=== PATIENT | female | born 1995 | race Caucasian/White ===

== ENCOUNTER 2017-02-18 17:39 | Emergency (ER) | payer BC ==
[~2017-02-18] VITALS: Ht 167.6 cm; Wt 53.0 kg
[~2017-02-18 17:39] MED LIST: BCPILLS PO
[2017-02-18 17:48] VITALS: Ht 167.6 cm; Wt 53.0 kg
[2017-02-18] MEDS ORDERED: SODIUM CHLORIDE 0.9% 1000ML 1,000 ML IV STA (18:02)
--- NOTE | 2017-02-18 18:09 | EMERGENCY ROOM VISIT NOTE ---
History Report prepared by Milagro: Damian Mojica Under the Supervision of: Dr. Ha Ingram M.D. First contact with patient: 17:55 Chief Complaint: GI ASSESSMENT Stated Complaint: BLOODY DIARRHEA Nursing Triage Summary: Four episodes of bloody diarrhea today History of Present Illness The patient is a 21 year old female who presents to the Emergency Room with complaints of episodes of bloody diarrhea occurring today. She notes having about 4 to 5 episodes of bloody diarrhea that began after running earlier. She is currently training for a marathon, and denies taking any supplements. She admits to feeling slightly lightheaded upon standing, and notes her abdomen feels crampy. The patient denies having back pain, and has not had any sick contact. She was in [place] last month but denies drinking from [place]. She has been eating fine, and admits to drinking alcohol yesterday. The patient reports she has been taking Zoloft 75 mg for about a year, and occasionally takes ibuprofen most recently yesterday. She notes she had streaks of blood in her stool once before but not associated with diarrhea. She denies recent sick contact. Source of History: patient Onset: earlier today Position: other (rectum) Symptom Intensity: 4-5 episodes Quality: other (hematochezia) Timing: other (episodes) Associated Symptoms: No back pain Note: Patient admits to some lightheadedness with standing. Review of Systems See HPI for pertinent positives & negatives. A total of 10 systems reviewed and were otherwise negative. Past Medical & Surgical Medical Problems: (1) Asthma (2) Pneumonia, Organism Nos (3) Syncope Surgical Problems: (1) No history of previous surgery Family History FH: cancer FH: hypertension FH: kidney disease Social History Smoking Status: Never Smoker Alcohol Use: none Marital Status: single Housing Status: lives with family Occupation Status: [employer] student Current/Historical Medications Scheduled Control Pills ( Control Pills), 1 TAB PO DAILY Omeprazole (Omeprazole), 1 TAB PO DIRECTED Sertraline (Zoloft), 75 MG PO DAILY Allergies Coded Allergies: No Known Allergies (Unverified , 02/18/17) Physical Exam Vital Signs Date Time Temp Pulse Resp B/P Pulse Ox O2 Delivery O2 Flow Rate FiO2 02/18/17 20:28 66 18 114/69 98 02/18/17 18:46 76 16 96/60 02/18/17 18:14 85 110/62 87 108/59 81 99/60 02/18/17 17:58 58 02/18/17 17:48 53 20 85/45 99 Room Air Physical Exam GENERAL: Patient is well appearing and in minimal distress. HEENT: No acute trauma, normocephalic atraumatic, mucous membranes moist, no nasal congestion, no scleral icterus. NECK: No stridor, no adenopathy, no meningismus, trachea is midline. LUNGS: No dyspnea. Clear to auscultation and equal bilaterally. No wheeze, no rhonchi. HEART: Regular rate and rhythm. No murmurs, rubs, gallops appreciated. ABDOMEN: Soft, nontender, bowel sounds positive, no masses appreciated, no peritonitis. BACK: No midline tenderness, no CVA tenderness EXTREMITIES: Normal motion all extremities, no cyanosis, no edema. NEUROLOGIC: Alert and oriented, no acute motor or sensory deficits, no focal weakness, cranial nerves grossly intact. SKIN: No rash, no jaundice, no diaphoresis. RECTAL: Brown bloody stool. Medical Decision & Procedures Laboratory Results 02/18/17 18:20 Red Blood Count 5.11, Mean Corpuscular Volume 88.6, Mean Corpuscular Hemoglobin 30.1, Mean Corpuscular Hemoglobin Concent 34.0, Mean Platelet Volume 9.9, Neutrophils (%) (Auto) 82.0, Lymphocytes (%) (Auto) 11.8, Monocytes (%) (Auto) 5.8, Eosinophils (%) (Auto) 0.0, Basophils (%) (Auto) 0.2, Neutrophils # (Auto) 11.09, Lymphocytes # (Auto) 1.60, Monocytes # (Auto) 0.79, Eosinophils # (Auto) 0.00, Basophils # (Auto) 0.03 02/18/17 18:20 Test 02/18/17 18:20 02/18/17 18:35 White Blood Count 13.54 K/uL (4.8-10.8) Red Blood Count 5.11 M/uL (4.2-5.4) Hemoglobin 15.4 g/dL (12.0-16.0) Hematocrit 45.3 % (37-47) Mean Corpuscular Volume 88.6 fL (80-100) Mean Corpuscular Hemoglobin 30.1 pg (25-34) Mean Corpuscular Hemoglobin Concent 34.0 g/dl (32-36) Platelet Count 274 K/uL (130-400) Mean Platelet Volume 9.9 fL (7.4-10.4) Neutrophils (%) (Auto) 82.0 % Lymphocytes (%) (Auto) 11.8 % Monocytes (%) (Auto) 5.8 % Eosinophils (%) (Auto) 0.0 % Basophils (%) (Auto) 0.2 % Neutrophils # (Auto) 11.09 K/uL (1.4-6.5) Lymphocytes # (Auto) 1.60 K/uL (1.2-3.4) Monocytes # (Auto) 0.79 K/uL (0.11-0.59) Eosinophils # (Auto) 0.00 K/uL (0-0.5) Basophils # (Auto) 0.03 K/uL (0-0.2) RDW Standard Deviation 42.2 fL (36.4-46.3) RDW Coefficient of Variation 13.0 % (11.5-14.5) Immature Granulocyte % (Auto) 0.2 % Immature Granulocyte # (Auto) 0.03 K/uL (0.00-0.02) Red Blood Cell Morphology Unremarkable Prothrombin Time 10.4 SECONDS (9.0-12.0) Prothromb Time International Ratio 1.0 (0.9-1.1) Anion Gap 12.0 mmol/L (3-11) Est Creatinine Clear Calc Drug Dose 75.3 ml/min Estimated GFR () 94.9 Estimated GFR (Non- 81.9 BUN/Creatinine Ratio 17.4 (10-20) Calcium Level 9.4 mg/dl (8.5-10.1) Total Creatine Kinase 113 U/L (26-192) C-Reactive Protein 0.35 mg/dl (0-0.29) Date/Time Source Procedure Growth Status 02/18/17 18:05 Stool C.difficile Toxin B Gene (PCR) - Final No C. difficile toxin B gene detected Complete Laboratory results as reviewed by me. Medications Administered Medications (Trade) Dose Ordered Sig/Zuri Route Start Time Stop Time Status Last Admin Dose Admin Sodium Chloride (Nss 1000ml) 1,000 ml @ 999 mls/hr Q1H1M STAT IV 02/18/17 18:02 02/18/17 19:02 DC 02/18/17 18:25 999 MLS/HR ED Course 175: The patient was evaluated in room B12B. A complete history and physical exam was performed. 1801: Ordered NSS 1,000 ml @ 999 mls/hr IV. 2002: Discussed the patient's case with Dr. Sanabria who recommends using a proton pump inhibitor twice daily for 1 week, and following up in the office later this week. 2014: I updated the patient and she feels comfortable with going home. 2019: Reevaluated the patient. Discussed results and discharge instructions: She verbalized understanding and agreement. The patient is ready for discharge. Medical Decision Differential: Viral, Bacterial, Ulcer, Iatrogenic, C-Diff, Malabsorption, Irritable Bowel Disease, IBS, Ischemic Bowel, amongst other pathologies entertained. 21 yr old female with recent onset lower abdominal cramping and black/bloody stool. Stool on exam is dark and heme positive. HgB normal and not orthostatic. Initial BP on lower side in waiting room but immediately there- after during my exam it is normal for age/size. Mild dehydration likely secondary to so much running. Normal nelda-rectal area. Mild WBC elevation without fever and no TTP. Mild abdominal cramping but not consistent with acute surgical abdomen. CRP faintly elevated not consistent with inflammatory process. Stable and looks well. Discussed with GI who will follow up later this week but in mean time start BID Prilosec x 1 week. Discussed avoid NSAID, spicy, excessive caffeine. Advised against running next few days and that keeping well hydrated important. RTED immediately if worsening pain, fevers, passing out, heavy bleeding, etc. Consults Time Called: 1954 Consulting Physician: [place] San[place]ria[place] [facility] [place]: 2002 Discussed the patient's case with Dr. Sanabria who recommends using a proton pump inhibitor twice daily for 1 week, and following up in the office later this week. Impression Primary Impression: GI bleed Scribe Attestation The scribe's documentation has been prepared under my direction and personally reviewed by me in its entirety. I confirm that the note above accurately reflects all work, treatment, procedures, and medical decision making performed by me. Departure Information Dispostion Home / Self-Care Prescriptions Omeprazole (OMEPRAZOLE) 20 Mg Tab 1 TAB PO DIRECTED, #45 TAB 1 Refill Take twice daily for 1 week then once daily. Prov: Ha Ingram M.D. 02/18/17 Referrals Javier Sanabria M.D. Patient Instructions GI Bleeding - [facility], [facility] Problem Qualifiers Primary Impression: GI bleed GI bleed type/associated pathology: unspecified gastrointestinal hemorrhage type Qualified Codes: K92.2 - Gastrointestinal hemorrhage, unspecified
[2017-02-18] MEDS ORDERED: SERT25TA PO (18:13)
[2017-02-18 18:34] LABS: HEMATOCRIT 45.3 % (37-47); MEAN CELL VOLUME 88.6 fL (80-100); MEAN CORPUSCULAR HEMOGLOBIN 30.1 pg (25-34); MEAN PLATELET VOLUME 9.9 fL (7.4-10.4); PLATELET COUNT 274 K/uL (130-400); RED BLOOD COUNT 5.11 M/uL (4.2-5.4); WHITE BLOOD COUNT 13.54 K/uL (4.8-10.8)
[2017-02-18 18:39] LABS: PROTHROMBIN TIME (PATIENT) 10.4 SECONDS (9.0-12.0)
[2017-02-18 18:50] LABS: BUN/CREATININE RATIO 17.4 (10-20); CALCIUM 9.4 mg/dl (8.5-10.1); CREATININE 0.98 mg/dl (0.60-1.20); POTASSIUM 3.1 mmol/L (3.5-5.1)
[2017-02-18 18:53] LABS: C-REACTIVE PROTEIN 0.35 mg/dl (0-0.29)
[2017-02-18 19:30] LABS: BASO % 0.2 %; BASO ABS # 0.03 K/uL (0-0.2); COMPLETE YES; IG% 0.2 %; LYMPH % 11.8 %; MONO % 5.8 %
[2017-02-18] MEDS ORDERED: OMEP20TA PO (20:17)
[2017-02-18 20:28] VITALS: BP 114/69; PULSE 66; O2SAT 98
== END 2017-02-18 20:30 | disposition home or self-care (01) ==
LOC: C.EDB 17:41
DX: K92.2 Gastrointestinal hemorrhage, unspecified (principal); J45.909 Unspecified asthma, uncomplicated; Z79.899 Other long term (current) drug therapy; Z80.9 Family history of malignant neoplasm, unspecified; Z82.49 Family history of ischemic heart disease and other diseases of the circulatory system; Z84.1 Family history of disorders of kidney and ureter